=== PATIENT | female | born 1980 | race Caucasian/White ===

== ENCOUNTER 2017-09-16 21:58 | Emergency (ER) | payer OTHER ==
[~2017-09-16] VITALS: Ht 154.9 cm; Wt 63.5 kg
[~2017-09-16 21:58] MED LIST: ALBU90OI INH; AZIT250 PO; BENZ100A PO; BUPR150T2 PO; CEPH500 PO; CIPRSO OS; CYCL10 PO; Catapres0.1 MG PO; Ciloxan5 ML LEFTEYE; Crutch1 EACH MISC; HYDACE5 PO; HYDR1TAB94 PO; IBUP600; IBUP600 PO; Klonopin0.5 MG PO; LORA.5; METH10 PO; Mucinex600 MG PO; NAPR500 PO; NAPR550 PO; OLAN2.5 PO; OMEP20ER PO; ONDA4ODT MM; OSEL75CA PO; OXYACE5T PO; OXYM.05NI; PENVK500 PO; PRED20 PO; PROM25 PO; RXHYDACE PO; RXNAPNA550 PO; RXOXYACE PO; RXPENVK250 PO; SERT50; SULF10OPSA BOTHEYES; SULTRIDS PO; TOBR.3OPSO OU; TRAM50 PO; TYLENOL PRN; Triamcinolone A15 GM TOP; Zofran Odt4 MG PO
[2017-09-16] MEDS ORDERED: Omeprazole20 M1 (22:01)
[2017-09-16] MEDS ORDERED: Crutch1 EACH XX (23:42)
[2017-09-16] MEDS ORDERED: IBUP400 PO (23:42)
== END 2017-09-17 | disposition home or self-care (01) ==
LOC: ER 21:58
DX: M79.672 Pain in left foot (principal); Z79.899 Other long term (current) drug therapy; F17.210 Nicotine dependence, cigarettes, uncomplicated
CPT/HCPCS: 73630; 99283

== ENCOUNTER 2017-09-21 16:11 | Emergency (ER) | payer OTHER ==
[~2017-09-21] VITALS: Ht 154.9 cm; Wt 63.5 kg
[~2017-09-21 16:11] MED LIST changes: +Crutch1 EACH XX; +IBUP400 PO; +Omeprazole20 M1
[2017-09-21] MEDS ORDERED: CRUTCH4 XX (16:19)
== END 2017-09-21 17:01 | disposition home or self-care (01) ==
LOC: ER 16:11
DX: S92.325A Nondisplaced fracture of second metatarsal bone, left foot, initial encounter for closed fracture (principal); F17.210 Nicotine dependence, cigarettes, uncomplicated; Z79.899 Other long term (current) drug therapy; X58.XXXA Exposure to other specified factors, initial encounter
CPT/HCPCS: 29515; 99282

== ENCOUNTER 2018-03-25 10:40 | Emergency (ER) | payer OTHER ==
[~2018-03-25] VITALS: Ht 154.9 cm; Wt 52.2 kg
[~2018-03-25 10:40] MED LIST changes: +CRUTCH4 XX
[2018-03-25] MEDS ORDERED: FLUO10 PO (11:08)
[2018-03-25 11:52] LABS: Influenza A Negative (NEGATIVE); Influenza B Negative (NEGATIVE)
[2018-03-25] MEDS ORDERED: ALBU90OI INH (12:08)
== END 2018-03-25 12:11 | disposition home or self-care (01) ==
LOC: ER 10:40
PROVIDERS: Physician Assistant
DX: J06.9 Acute upper respiratory infection, unspecified (principal); J44.9 Chronic obstructive pulmonary disease, unspecified; F32.9 Major depressive disorder, single episode, unspecified; F17.210 Nicotine dependence, cigarettes, uncomplicated; Z79.899 Other long term (current) drug therapy
CPT/HCPCS: 71046; 87804; 99283-25

== ENCOUNTER 2018-04-21 12:56 | Emergency (ER) | payer OTHER ==
[~2018-04-21] VITALS: Ht 154.9 cm; Wt 49.0 kg
[~2018-04-21 12:56] MED LIST changes: +FLUO10 PO
[2018-04-21] MEDS ORDERED: Percocet 5-3251 EACH PO (13:35)
== END 2018-04-21 14:19 | disposition home or self-care (01) ==
LOC: ER 12:56
DX: S52.571A Other intraarticular fracture of lower end of right radius, initial encounter for closed fracture (principal); S52.611A Displaced fracture of right ulna styloid process, initial encounter for closed fracture; W01.198A Fall on same level from slipping, tripping and stumbling with subsequent striking against other object, initial encounter; Z79.899 Other long term (current) drug therapy; J44.9 Chronic obstructive pulmonary disease, unspecified; F32.9 Major depressive disorder, single episode, unspecified; F17.210 Nicotine dependence, cigarettes, uncomplicated
CPT/HCPCS: 29125; 73110; 96372; 96374; 96375; 99283-25; J1170; J1885

== ENCOUNTER 2018-04-30 10:24 | Day surgery (SDC) | payer OTHER ==
[~2018-04-30] VITALS: Ht 154.9 cm; Wt 50.8 kg
[~2018-04-30 10:24] MED LIST changes: +Percocet 5-3251 EACH PO
--- NOTE | 2018-04-30 12:11 | NUR ---
04/30/18 1211 Yeison Murdock PT UPDATED ON DELAY IN ROOM DUE TO PREVIOUS CASES RUNNING LATE. PT DENIES ANY NEEDS AT THIS TIME. AT BEDSIDE. CALL LIGHT WITHIN REACH. WILL CONTINUE TO MONITOR PT.
--- NOTE | 2018-04-30 13:34 | NUR ---
04/30/18 1334 Monica Sifuentes PATIENTS OPERATIVE ARM NOTED TO HAVE BRUSING ON THE BICEPS,AND TWO WHAT APPEARED TO BE PUNCTURE LIKE CORTEZ ON THE DISTAL ANTERIOR AND POSTERIOR FOREARM. THE AREAS WERE NOTED TO BE FRESHLY BRUISED AND THE BEGINNING OF SCABBING STARTING TO FORM. OVERALL HYGEINE OF THE HAND WAS POOR. PATIENTS SKIN WAS PREPPED WELL WITH ALCOHOL AND CHLORAPREP. DR AWARE NO FURTHER ORDERS GIVEN
--- NOTE | 2018-04-30 15:32 | NUR ---
04/30/18 1532 AlvinoYoko 1520 RECIEVED REPORT FROM [facility]. PT SLEEPING IN RECLINER. DC INSTRUCTIONS GONE OVER WITH PT AND . PT DOZING IN AND OUT OF SLEEP AND WAKE UP TO BP CUFF. PT MEDICATED FOR PAIN ORDERED. PT UNABLE TO RATE HER PAIN AT THIS TIME. DRESSING CDI. ICE PACK UNDER LEFT ELBOW.
== END 2018-04-30 16:10 | disposition home or self-care (01) ==
LOC: ORSCSDS 10:24
PROVIDERS: Orthopaedic Surgery
PROC: 0PSH04Z Reposition Right Radius with Internal Fixation Device, Open Approach (ICD-10-PCS; principal; 2018-04-30 11:45)
DX: S52.571A Other intraarticular fracture of lower end of right radius, initial encounter for closed fracture (principal); J44.9 Chronic obstructive pulmonary disease, unspecified; F17.210 Nicotine dependence, cigarettes, uncomplicated; Z79.899 Other long term (current) drug therapy
CPT/HCPCS: C1713; J0690; J1100; J2250; J2405; J3010; J7120

== ENCOUNTER → 2019-03-16 | Outpatient (CLI) | payer OTHER ==
[2019-03-16 11:41] LABS: BASOPHILS ABSOLUTE AUTO 0.03 K/mm3 (0.00-0.23); BASOPHILS PERCENT AUTO 1 % (0-2); EOSINOPHILS ABSOLUTE AUTO 0.01 K/mm3 (0.00-0.68); EOSINOPHILS PERCENT AUTO 0 % (0-6); Hematocrit 42.1 % (33.0-51.0); IMMATURE GRAN ABSOLUTE AUTO 0.01 K/mm3 (0.00-0.10); IMMATURE GRAN PERCENT AUTO 0 % (0-1); LYMPHOCYTES ABSOLUTE AUTO 1.14 K/mm3 (0.84-5.20); LYMPHOCYTES PERCENT AUTO 21 % (21-46); MONOCYTES PERCENT AUTO 5 % (4-13); Mean Corpuscular HGB 27.9 pg (26.0-34.0); Mean Corpuscular HGB Conc 33.3 g/dL (31.5-36.5); Mean Corpuscular Volume 84 fL (80-100); Mean Platelet Volume 9.7 fL (9.1-12.4); NEUTROPHILS ABSOLUTE AUTO 4.08 K/mm3 (1.96-9.15); NEUTROPHILS PERCENT AUTO 73 % (41-73); Platelet Count 243 K/mm3 (150-400); RDW Coefficient Variation 12.7 % (11.7-14.2); RDW Standard Deviation 38.5 fL (35.1-46.3); Red Blood Cell Count 5.02 M/mm3 (3.80-5.20); White Blood Cell Count 5.57 K/mm3 (4.00-11.30)
[2019-03-16 11:50] LABS: Alanine Aminotransfer (ALT/SGP 19 U/L (12-78); Albumin, Blood 4.2 g/dL (3.4-5.0); Albumin/Globulin Ratio 0.9 (0.8-1.8); Alk Phos 70 U/L (40-126); Anion Gap 10 mmol/L (6-16); Aspartate Aminotrans (AST/SGOT 19 U/L (12-37); Bilirubin, Total 0.9 mg/dL (0.1-1.0); Blood Urea Nitrogen 9 mg/dL (8-24); Bun/Creatinine Ratio 12.7 (12.0-20.0); CO2, Blood 25 mmol/L (21-32); Chloride, Blood 101 mmol/L (98-108); Creatinine, Blood 0.71 mg/dL (0.40-1.00); Globulin, Blood 4.5 g/dL (2.2-4.0); Glomerular Filtration Rate >60 (60-); Glucose, Blood 100 mg/dL (70-99); Potassium, Blood 4.2 mmol/L (3.5-5.5); Sodium, Blood 136 mmol/L (136-145); Total Protein, Blood 8.7 g/dL (6.4-8.2)
== END | disposition home or self-care (01) ==
LOC: LAB SHORT 11:36 → LAB EV 11:36
PROVIDERS: Family Medicine
DX: R10.9 Unspecified abdominal pain (principal)
CPT/HCPCS: 80053; 83690; 85025

== ENCOUNTER → 2019-04-28 | Outpatient (CLI) | payer OTHER ==
[2019-05-01 06:07] LABS: CHLAMYDIA TRACHOMATIS, NAA Negative (Negative); NEISSERIA GONORRHOEAE, NAA Negative (Negative)
[2019-05-02 16:06] LABS: HPV 16 Negative (Negative); HPV 18 Negative (Negative); HPV OTHER HR TYPES Negative (Negative)
== END ==
LOC: LAB SHORT 18:47 → LAB 18:47
PROVIDERS: Nurse Practitioner Family
DX: Z12.4 Encounter for screening for malignant neoplasm of cervix (principal); N89.8 Other specified noninflammatory disorders of vagina; K62.89 Other specified diseases of anus and rectum
CPT/HCPCS: 87491; 87591; 87624; G0123

== ENCOUNTER 2020-01-03 12:11 | Emergency (ER) | payer OTHER | END 2020-01-03 14:58 | disposition left against medical advice (07) | LOC: ER 12:11 | DX: Z53.21 Procedure and treatment not carried out due to patient leaving prior to being seen by health care provider (principal) ==

== ENCOUNTER 2020-01-07 07:36 | Emergency (ER) | payer OTHER ==
[~2020-01-07] VITALS: Ht 154.9 cm; Wt 56.7 kg
[2020-01-07] MEDS ORDERED: ACET500 PO (08:04)
[2020-01-07] MEDS ORDERED: IBUP200 PO (08:04)
[2020-01-07 08:50] LABS: Hematocrit 31.8 % (33.0-51.0); Hemoglobin 10.1 g/dL (11.5-16.0); Mean Corpuscular HGB 26.9 pg (26.0-34.0); Mean Corpuscular HGB Conc 31.8 g/dL (31.5-36.5); Mean Corpuscular Volume 85 fL (80-100); RDW Coefficient Variation 13.6 % (11.7-14.2); Red Blood Cell Count 3.76 M/mm3 (3.80-5.20); White Blood Cell Count 4.09 K/mm3 (4.00-11.30)
[2020-01-07 09:09] LABS: Mean Platelet Volume 12.6 fL (9.1-12.4); Platelet Count 71 K/mm3 (150-400)
[2020-01-07 09:09] LABS: Alanine Aminotransfer (ALT/SGP 22 U/L (12-78); Albumin, Blood 2.3 g/dL (3.4-5.0); Albumin/Globulin Ratio 0.5 (0.8-1.8); Alk Phos 259 U/L (50-136); Anion Gap 4 mmol/L (6-16); Aspartate Aminotrans (AST/SGOT 34 U/L (12-37); Bilirubin, Total 0.8 mg/dL (0.1-1.0); Blood Urea Nitrogen 21 mg/dL (8-24); Bun/Creatinine Ratio 22.3 (12.0-20.0); CO2, Blood 26 mmol/L (21-32); Calcium, Blood 9.7 mg/dL (8.5-10.1); Chloride, Blood 109 mmol/L (98-108); Creatinine, Blood 0.94 mg/dL (0.40-1.00); Globulin, Blood 4.6 g/dL (2.2-4.0); Glomerular Filtration Rate >60 (60-); Glucose, Blood 122 mg/dL (70-99); Potassium, Blood 3.6 mmol/L (3.5-5.5); Sodium, Blood 139 mmol/L (136-145); Total Protein, Blood 6.9 g/dL (6.4-8.2)
[2020-01-07 09:16] LABS: BAND PERCENT MAN 10 % (0-8); BASOPHILS PERCENT MAN 0 % (0-2); EOSINOPHILS PERCENT MAN 0 % (0-6); LYMPHOCYTES ABSOLUTE MAN 0.53 K/mm3 (0.84-5.20); LYMPHOCYTES PERCENT MAN 13 % (21-46); MONOCYTES PERCENT MAN 5 % (4-13); NEUTROPHILS ABSOLUTE MAN 3.35 K/mm3 (1.96-9.15); SEG NEUTROPHILS PERCENT MAN 72 % (41-73); TOTAL CELLS COUNTED 100
[2020-01-07 12:46] LABS: Phosphorus, Blood 1.3 mg/dL (2.5-4.9)
[2020-01-07 13:04] LABS: Free Thyroxine 2.37 ng/dL (0.70-1.60); Thyroid Stimulating Hormone 0.582 uIU/mL (0.360-4.800)
[2020-01-07 13:10] LABS: Source, Urine Clean Catch
[2020-01-07 13:20] LABS: Bilirubin, Urine Neg (Neg); Blood, Urine 2+ (Neg); Glucose Qualitative, Urine Neg (Neg); Ketones, Urine Neg (Neg); Leukocyte Esterase, Urine 1+ (Neg); Nitrite, Urine Neg (Neg); Protein, Urine 2+ (Neg); Specific Gravity, Urine 1.015 (1.003-1.022); Urobilinogen, Urine 3+ (Normal)
[2020-01-07 13:30] LABS: U Amphetamine Screen DETECTED; U Barbituate Screen Not Detected; U Benzodiazapine Screen Not Detected; U Buprenorphine Screen Not Detected; U Cannabinoids Screen Not Detected; U Cocaine Screen Not Detected; U Methadone Screen Not Detected; U Methamphetamine Screen DETECTED; U Opiates Screen DETECTED; U Oxycodone Screen Not Detected; U Phencyclidine Screen Not Detected; U Propoxyphene Screen Not Detected
[2020-01-07 13:33] LABS: Appearance, Urine Clear (Clear); Color, Urine Yellow (P-Yellow)
[2020-01-07 13:35] LABS: Bacteria Few /hpf; Squamous Epithelial Cells Few /hpf (Few)
[2020-01-07] MEDS ORDERED: METPRE4DP PO (14:02)
[2020-01-07] MEDS ORDERED: CODACE30 PO (14:02)
[2020-01-07] MEDS ORDERED: IBUP600 PO (14:02)
[2020-01-07] MEDS ORDERED: Robaxin-750750 MG PO (14:02)
== END 2020-01-07 14:25 | disposition home or self-care (01) ==
LOC: ER 07:36
PROVIDERS: Emergency Medicine
DX: S16.1XXA Strain of muscle, fascia and tendon at neck level, initial encounter (principal); M54.12 Radiculopathy, cervical region; F15.10 Other stimulant abuse, uncomplicated; J44.9 Chronic obstructive pulmonary disease, unspecified; F17.210 Nicotine dependence, cigarettes, uncomplicated; Z79.899 Other long term (current) drug therapy
CPT/HCPCS: 72156; 80053; 81001; 82550; 83735; 84100; 84439; 84443; 85025; 85651; 86140; 87077; 87086; 87147; 87186; 93005; 93010; 96361; 96365; 96375; 96376; 99284-25; A9577; J1170; J1885; J2270; J2405; J3010; J7030

== ENCOUNTER 2020-03-22 21:51 | Inpatient (IN) | payer OTHER ==
[~2020-03-22] VITALS: Ht 154.9 cm; Wt 54.7 kg
[~2020-03-22 21:51] MED LIST changes: +ACET500 PO; +CODACE30 PO; +IBUP200 PO; +METPRE4DP PO; +Robaxin-750750 MG PO
[2020-03-22 22:54] LABS: Hematocrit 39.8 % (33.0-51.0); Mean Corpuscular HGB 25.6 pg (26.0-34.0); Mean Corpuscular HGB Conc 30.2 g/dL (31.5-36.5); Mean Corpuscular Volume 85 fL (80-100); Mean Platelet Volume 8.7 fL (9.1-12.4); Platelet Count 240 K/mm3 (150-400); RDW Standard Deviation 46.5 fL (35.1-46.3); Red Blood Cell Count 4.69 M/mm3 (3.80-5.20)
[2020-03-22 22:58] LABS: BASOPHILS PERCENT AUTO 0 % (0-2); EOSINOPHILS PERCENT AUTO 0 % (0-6); IMMATURE GRAN PERCENT AUTO 0 % (0-1); LYMPHOCYTES ABSOLUTE AUTO 0.35 K/mm3 (0.84-5.20); LYMPHOCYTES PERCENT AUTO 52 % (21-46); MONOCYTES PERCENT AUTO 0 % (4-13); NEUTROPHILS ABSOLUTE AUTO 0.33 K/mm3 (1.96-9.15); NEUTROPHILS PERCENT AUTO 49 % (41-73)
[2020-03-22 23:00] LABS: White Blood Cell Count 0.68 K/mm3 (4.00-11.30)
[2020-03-22 23:11] LABS: Alanine Aminotransfer (ALT/SGP 12 U/L (12-78); Albumin, Blood 3.5 g/dL (3.4-5.0); Albumin/Globulin Ratio 0.7 (0.8-1.8); Alk Phos 141 U/L (50-136); Anion Gap 8 mmol/L (6-16); Aspartate Aminotrans (AST/SGOT 20 U/L (12-37); Bilirubin, Total 1.1 mg/dL (0.1-1.0); Blood Urea Nitrogen 10 mg/dL (8-24); Bun/Creatinine Ratio 15.9 (12.0-20.0); CO2, Blood 25 mmol/L (21-32); Calcium, Blood 9.5 mg/dL (8.5-10.1); Chloride, Blood 107 mmol/L (98-108); Creatinine, Blood 0.63 mg/dL (0.40-1.00); Globulin, Blood 4.8 g/dL (2.2-4.0); Glomerular Filtration Rate >60 (60-); Glucose, Blood 95 mg/dL (70-99); Magnesium, Blood 1.9 mg/dL (1.6-2.4); Potassium, Blood 3.4 mmol/L (3.5-5.5); Sodium, Blood 140 mmol/L (136-145); Total Protein, Blood 8.3 g/dL (6.4-8.2)
[2020-03-22 23:27] LABS: Troponin I <0.015 ng/mL (0.000-0.040)
[2020-03-23 00:25] LABS: Influenza A, PCR Negative (NEGATIVE); Influenza B, PCR Negative (NEGATIVE); Resp Syncytial Virus, PCR Negative (NEGATIVE); SARS-Cov-2 (COVID-19) PCR, MMC Negative (NEGATIVE)
[2020-03-23 00:31] LABS: Source, Urine Catheter
[2020-03-23 00:34] LABS: Bilirubin, Urine Neg (Neg); Blood, Urine 4+ (Neg); Glucose Qualitative, Urine Neg (Neg); Ketones, Urine Neg (Neg); Leukocyte Esterase, Urine 1+ (Neg); Nitrite, Urine Neg (Neg); Protein, Urine 3+ (Neg); Urobilinogen, Urine 1+ (Normal)
[2020-03-23 00:45] LABS: U Amphetamine Screen DETECTED; U Barbituate Screen Not Detected; U Methamphetamine Screen DETECTED
[2020-03-23 00:46] LABS: U Benzodiazapine Screen Not Detected; U Buprenorphine Screen Not Detected; U Cannabinoids Screen Not Detected; U Cocaine Screen Not Detected; U Methadone Screen Not Detected; U Opiates Screen DETECTED; U Oxycodone Screen Not Detected; U Phencyclidine Screen Not Detected; U Propoxyphene Screen Not Detected
[2020-03-23 00:47] LABS: Amorphous Light (0-Heavy); Appearance, Urine Hazy (Clear); Bacteria Mod /hpf; Color, Urine Yellow (P-Yellow); Squamous Epithelial Cells Many /hpf (Few)
--- NOTE | 2020-03-23 07:37 | NUR ---
ADMIT NOTE/SHIFT SUMMARY PATIENT ADMITTED TOMMY THIS MORNING FROM THE ER. PATIENT VERY DROWSY UPON ADMIT. PATIENT WAS SLID OVER FROM THE GURNEY TO THE BED VIA SLIDER SHEET. PATIENT WAS ORIENTED TO THE ROOM, UNIT, AND CALL LIGHT BEST POSSIBLE GIVEN PATIENT'S DROWSY STATE. PATIENT WOULD EASILY WAKE UP TO VERBAL STIMULI BUT WOULD FALL BACK TO SLEEP MID SENTENCE. IV FLUIDS RUNNING PER ORDERS. VITAL SIGNS CHARTED. PATIENT APPEARS TO BE ABLE TO MOVE SLEF ABOUT IN BED. REPORT GIVEN TO ONCOMING RN.
[2020-03-23 08:51] LABS: Source, Urine Clean Catch
[2020-03-23 09:24] LABS: Bilirubin, Urine Neg (Neg); Blood, Urine 4+ (Neg); Glucose Qualitative, Urine Neg (Neg); Ketones, Urine Neg (Neg); Leukocyte Esterase, Urine Neg (Neg); Nitrite, Urine Neg (Neg); Protein, Urine Neg (Neg); Specific Gravity, Urine 1.005 (1.003-1.022); Urobilinogen, Urine NORM (Normal)
[2020-03-23 09:31] LABS: Appearance, Urine Clear (Clear); Color, Urine Yellow (P-Yellow)
[2020-03-23 09:33] LABS: Bacteria Mod /hpf; Red Blood Cells, Urine 0-2 /hpf (0-2); White Blood Cells, Urine 0-2 /hpf (0-5)
[2020-03-23 09:34] LABS: Squamous Epithelial Cells Many /hpf (Few); Yeast/Fungi Urine Few /hpf
[2020-03-23 09:55] LABS: Hematocrit 32.8 % (33.0-51.0); Hemoglobin 10.1 g/dL (11.5-16.0); Mean Corpuscular HGB 26.1 pg (26.0-34.0); Mean Corpuscular HGB Conc 30.8 g/dL (31.5-36.5); Mean Corpuscular Volume 85 fL (80-100); Mean Platelet Volume 9.7 fL (9.1-12.4); Platelet Count 150 K/mm3 (150-400); RDW Coefficient Variation 15.1 % (11.7-14.2); RDW Standard Deviation 46.9 fL (35.1-46.3); Red Blood Cell Count 3.87 M/mm3 (3.80-5.20); White Blood Cell Count 7.47 K/mm3 (4.00-11.30)
[2020-03-23 10:03] LABS: Alanine Aminotransfer (ALT/SGP 25 U/L (12-78); Albumin, Blood 2.4 g/dL (3.4-5.0); Albumin/Globulin Ratio 0.6 (0.8-1.8); Alk Phos 169 U/L (50-136); Anion Gap 6 mmol/L (6-16); Aspartate Aminotrans (AST/SGOT 38 U/L (12-37); Bilirubin, Total 1.3 mg/dL (0.1-1.0); Blood Urea Nitrogen 12 mg/dL (8-24); CO2, Blood 23 mmol/L (21-32); Calcium, Blood 8.2 mg/dL (8.5-10.1); Chloride, Blood 110 mmol/L (98-108); Creatinine, Blood 0.86 mg/dL (0.40-1.00); Globulin, Blood 3.7 g/dL (2.2-4.0); Glomerular Filtration Rate >60 (60-); Glucose, Blood 78 mg/dL (70-99); Potassium, Blood 3.8 mmol/L (3.5-5.5); Sodium, Blood 139 mmol/L (136-145); Total Protein, Blood 6.1 g/dL (6.4-8.2)
[2020-03-23 10:25] LABS: BAND PERCENT MAN 23 % (0-8); BASOPHILS PERCENT MAN 0 % (0-2); EOSINOPHILS PERCENT MAN 0 % (0-6); LYMPHOCYTES ABSOLUTE MAN 0.52 K/mm3 (0.84-5.20); LYMPHOCYTES PERCENT MAN 7 % (21-46); MONOCYTES ABSOLUTE MAN 0.07 K/mm3 (0.16-1.47); MONOCYTES PERCENT MAN 1 % (4-13); NEUTROPHILS ABSOLUTE MAN 6.87 K/mm3 (1.96-9.15); SEG NEUTROPHILS PERCENT MAN 69 % (41-73); TOTAL CELLS COUNTED 100
--- NOTE | 2020-03-23 16:17 | NUR ---
PATIENT BECAME IRRITABLE AND LABILE, STATED THAT SHE WANTED TO GO OUT OF THE HOSPITAL TO SMOKE. PATIENT TOLD THAT IT IS AGAINST HOSPITAL POLICY AND DR. PERRY CALLED FOR NICOTINE PATCH WHICH THIS RN ADMINISTERED PER EMAR. PATIENT MEDICATED WITH ATIVAN AND FENTANYL PER EMAR FOR MANAGEMENT OF WITHDRAWAL SYMPTOMS. THIS RN WAS CALLED TO PATIENT'S ROOM BY HOSPITAL STAFF BECAUSE PATIENT WAS IN HALLWAY DRESSED AND STATING "TAKE THIS SH-- OUT OF ME I WANT TO LEAVE" PATIENT MOTIONING TOWARD IVs. THIS RN TOLD PATIENT THAT SHE NEEDED TO WAIT TO LEAVE FOR IVs TO BE REMOVED, THAT SHE WOULD NEED TO SIGN AMA PAPERWORK, AND THAT THE DOCTOR WOULD WANT TO SPEAK WITH HER. PATIENT REMAINED ESCALATED AND IRATE. PATIENT AGREED TO WAIT IN ROOM, BUT REMAINED INSISTENT ON LEAVING AMA. DR. PERRY NOTIFIED, CAME TO BEDSIDE TO EXPLAIN RISKS OF LEAVING AMA. PATIENT CONTINUED TO ARGUE WITH NURSING STAFF, MADE STATEMENTS REGARDING NEEDING TO SMOKE AND NOT CARING ABOUT RISK OF . PATIENT'S SPOUSE ARRIVED DURING THE CONVERSATION BETWEEN DR. PERRY, THIS RN, AND THE PATIENT. AT THIS TIME PATIENT INSISTED THAT SHE WANTED TO LEAVE THE HOSPITAL AND HAVE HER DRIVE HER TO [facility]. PATIENT'S SPOUSE WANTED PATIENT TO STAY AT THIS HOSPITAL, BUT AGREED TO DRIVE HER TO [facility]. THIS RN COMMUNICATED TO PATIENT AND SPOUSE THE RISKS OF LEAVING AMA INCLUDING AND ORGAN FAILURE. PATIENT AND SPOUSE ENDORSED UNDERSTANDING. AMA PAPERWORK SIGNED, PATIENT LEFT VIA AMBULATION.
== END 2020-03-23 15:03 | disposition left against medical advice (07) | DRG 871 ==
LOC: ER 21:51 → ERHOLD 03-23 01:16 → PCU 03-23 01:16
PROVIDERS: Emergency Medicine; Physician Assistant; ADMIT Internal Medicine
DX: A41.9 Sepsis, unspecified organism (principal); R65.21 Severe sepsis with septic shock; F15.13 Other stimulant abuse with withdrawal; N39.0 Urinary tract infection, site not specified; I08.1 Rheumatic disorders of both mitral and tricuspid valves; D64.9 Anemia, unspecified; F17.210 Nicotine dependence, cigarettes, uncomplicated; Z20.828 Contact with and (suspected) exposure to other viral communicable diseases; E87.6 Hypokalemia; E86.0 Dehydration; F41.9 Anxiety disorder, unspecified
CPT/HCPCS: 0241U; 36415; 71045; 74176; 80053; 81001; 83605; 83690; 83735; 83880; 84145; 84484; 84703; 85025; 87040; 87086; 93005; 93010; 93306; 93971; 96361; 96365; 96367; 96375; 99284-25; A9270; C1751; J0696; J1650; J1885; J2060; J2405; J3010; J3370; J3480; J7030

== ENCOUNTER 2021-06-19 12:57 | Emergency (ER) | payer OTHER ==
[~2021-06-19] VITALS: Ht 154.9 cm; Wt 59.4 kg
[2021-06-19] MEDS ORDERED: CEPH500 PO (14:08)
[2021-06-19] MEDS ORDERED: AMOCLA875 PO (14:19)
[2021-06-19] MEDS ORDERED: SUBOXONE 8 MG-1 EACH (14:27)
== END 2021-06-19 14:28 | disposition home or self-care (01) ==
LOC: ER 12:57
DX: L03.115 Cellulitis of right lower limb (principal); F17.210 Nicotine dependence, cigarettes, uncomplicated
CPT/HCPCS: 99283; A9270

== ENCOUNTER 2021-09-26 20:18 | Emergency (ER) | payer OTHER ==
[~2021-09-26] VITALS: Ht 154.9 cm; Wt 59.0 kg
[~2021-09-26 20:18] MED LIST changes: +AMOCLA875 PO; +SUBOXONE 8 MG-1 EACH
== END 2021-09-26 22:10 | disposition home or self-care (01) ==
LOC: ER 20:18
DX: S80.212A Abrasion, left knee, initial encounter (principal); S90.412A Abrasion, left great toe, initial encounter; F17.210 Nicotine dependence, cigarettes, uncomplicated; Z79.899 Other long term (current) drug therapy; W01.0XXA Fall on same level from slipping, tripping and stumbling without subsequent striking against object, initial encounter
CPT/HCPCS: 73562-LT; 73630; 99283-25

== ENCOUNTER 2023-10-18 22:39 | Emergency (ER) | payer OTHER ==
[~2023-10-18] VITALS: Ht 154.9 cm; Wt 55.3 kg
[~2023-10-18 22:39] MED LIST changes: +BRIXADI8 MG/0.16
[2023-10-18 23:06] VITALS: BP 137/83
[2023-10-18] MEDS ORDERED: CEPH500 PO (23:37)
[2023-10-18] MEDS ORDERED: Cephalexin Monohydrate 500 MG Cap PO ONE (23:40)
== END 2023-10-19 00:03 | disposition home or self-care (01) ==
LOC: ER 22:39
DX: L03.115 Cellulitis of right lower limb (principal); F17.210 Nicotine dependence, cigarettes, uncomplicated
CPT/HCPCS: 99283; A9270

== ENCOUNTER 2023-12-01 05:17 | Emergency (ER) | payer OTHER ==
[~2023-12-01] VITALS: Ht 154.9 cm; Wt 54.4 kg
[2023-12-01] MEDS ORDERED: Ketorolac Tromethamine 15mg Vial IM ONE (06:40)
[2023-12-01 08:26] VITALS: BP 123/90
== END 2023-12-01 08:28 | disposition home or self-care (01) ==
LOC: ER 05:17
DX: S00.93XA Contusion of unspecified part of head, initial encounter (principal); S69.92XA Unspecified injury of left wrist, hand and finger(s), initial encounter; S69.91XA Unspecified injury of right wrist, hand and finger(s), initial encounter; F17.210 Nicotine dependence, cigarettes, uncomplicated; Y04.8XXA Assault by other bodily force, initial encounter
CPT/HCPCS: 29125; 73100; 96372-59; 99283-25; J1885

== ENCOUNTER 2023-12-27 17:00 | Emergency (ER) | payer OTHER ==
[~2023-12-27] VITALS: Ht 154.9 cm; Wt 59.0 kg
[~2023-12-27 17:00] MED LIST changes: +FERSU300 PO
[2023-12-27 17:12] VITALS: BP 126/87
== END 2023-12-27 17:53 | disposition home or self-care (01) ==
LOC: ER 17:00
DX: R07.89 Other chest pain (principal); J44.9 Chronic obstructive pulmonary disease, unspecified; F17.210 Nicotine dependence, cigarettes, uncomplicated; Z79.899 Other long term (current) drug therapy
CPT/HCPCS: 71046; 99283-25

== ENCOUNTER 2023-12-31 19:51 | Emergency (ER) | payer OTHER ==
[~2023-12-31] VITALS: Ht 154.9 cm; Wt 59.0 kg
[2023-12-31 20:24] LABS: BASOPHILS ABSOLUTE AUTO 0.05 K/mm3 (0.00-0.23); BASOPHILS PERCENT AUTO 1 % (0-2); EOSINOPHILS ABSOLUTE AUTO 0.16 K/mm3 (0.00-0.68); EOSINOPHILS PERCENT AUTO 3 % (0-6); Hematocrit 33.9 % (33.0-51.0); Hemoglobin 10.7 g/dL (11.5-16.0); IMMATURE GRAN ABSOLUTE AUTO 0.01 K/mm3 (0.00-0.10); IMMATURE GRAN PERCENT AUTO 0 % (0-1); LYMPHOCYTES ABSOLUTE AUTO 1.44 K/mm3 (0.84-5.20); LYMPHOCYTES PERCENT AUTO 28 % (21-46); MONOCYTES ABSOLUTE AUTO 0.49 K/mm3 (0.16-1.47); MONOCYTES PERCENT AUTO 10 % (4-13); Mean Corpuscular HGB 27.3 pg (26.0-34.0); Mean Corpuscular HGB Conc 31.6 g/dL (31.5-36.5); Mean Corpuscular Volume 87 fL (80-100); Mean Platelet Volume 9.4 fL (9.1-12.4); NEUTROPHILS ABSOLUTE AUTO 3.02 K/mm3 (1.96-9.15); NEUTROPHILS PERCENT AUTO 58 % (41-73); Platelet Count 237 K/mm3 (150-400); RDW Coefficient Variation 15.2 % (11.7-14.2); Red Blood Cell Count 3.92 M/mm3 (3.80-5.20); White Blood Cell Count 5.17 K/mm3 (4.00-11.30)
[2023-12-31 20:40] LABS: Albumin, Blood 3.4 g/dL (3.4-5.0); Albumin/Globulin Ratio 0.9 (0.8-1.8); Bilirubin, Total 0.4 mg/dL (0.1-1.0); Bun/Creatinine Ratio 16.7 (12.0-20.0); Calcium, Blood 9.6 mg/dL (8.5-10.1); Creatinine, Blood 1.08 mg/dL (0.40-1.00); Globulin, Blood 3.8 g/dL (2.2-4.0); Potassium, Blood 4.7 mmol/L (3.5-5.5); Total Protein, Blood 7.2 g/dL (6.4-8.2)
[2023-12-31 22:23] LABS: Source, Urine Clean Catch
[2023-12-31 22:25] LABS: Bilirubin, Urine Neg (Neg); Blood, Urine 5+ (Neg); Glucose Qualitative, Urine Neg (Neg); Ketones, Urine Neg (Neg); Leukocyte Esterase, Urine 3+ (Neg); Nitrite, Urine Neg (Neg); Protein, Urine 1+ (Neg); Specific Gravity, Urine 1.025 (1.003-1.022); Urobilinogen, Urine 1+ (Normal)
[2023-12-31 22:32] LABS: Appearance, Urine Hazy (Clear); Color, Urine Yellow (P-Yellow)
[2023-12-31 22:33] LABS: Bacteria Few /hpf; Red Blood Cells, Urine 0-2 /hpf (0-2); Squamous Epithelial Cells Many /hpf (Few)
[2024-01-01 02:30] VITALS: BP 125/71
[2024-01-01] MEDS ORDERED: Azithromycin 250 MG Tab PO ONE (03:00)
[2024-01-01] MEDS ORDERED: AZIT250 PO (03:01)
== END 2024-01-01 03:18 | disposition home or self-care (01) ==
LOC: ER 19:51
PROVIDERS: Emergency Medicine
DX: J18.9 Pneumonia, unspecified organism (principal); F17.210 Nicotine dependence, cigarettes, uncomplicated
CPT/HCPCS: 74177; 80053; 81001; 83690; 85025; 87086; 99284-25; A9270; Q9967